=== PATIENT | female | born 1990 | race Two or more races ===

== ENCOUNTER 2018-11-06 08:08 | Emergency (ER) | payer OTHER ==
[~2018-11-06] VITALS: Ht 152.4 cm; Wt 72.7 kg
[2018-11-06 08:12] VITALS: BP 140/68
== END 2018-11-06 08:49 | disposition left against medical advice (07) ==
LOC: EMS 08:12
DX: M25.551 Pain in right hip (principal); M25.521 Pain in right elbow; R11.2 Nausea with vomiting, unspecified; Z53.21 Procedure and treatment not carried out due to patient leaving prior to being seen by health care provider